=== PATIENT | female | born 1965 | race Caucasian/White ===

== ENCOUNTER → 2016-05-30 | Outpatient (CLI) | payer BC ==
[2005-09-02 07:31] VITALS: TEMP 98
== END ==
LOC: MC.RAD 11:20
DX: Z12.31 Encounter for screening mammogram for malignant neoplasm of breast (principal)

== ENCOUNTER → 2017-06-30 | Outpatient (CLI) | payer BC ==
[2005-09-02 07:31] VITALS: TEMP 98
== END ==
LOC: MC.RAD 11:20
DX: Z12.31 Encounter for screening mammogram for malignant neoplasm of breast (principal)

== ENCOUNTER → 2018-05-23 | Outpatient (CLI) | payer BC ==
[2005-09-02 07:31] VITALS: TEMP 98
== END ==
LOC: COL.RAD 08:01
DX: G51.0 Bell's palsy (principal)
CPT/HCPCS: A9585

== ENCOUNTER → 2018-09-13 | Outpatient (CLI) | payer BC ==
[2005-09-02 07:31] VITALS: TEMP 98
== END ==
LOC: MC.RAD 15:25
DX: Z12.31 Encounter for screening mammogram for malignant neoplasm of breast (principal)

== ENCOUNTER → 2019-06-24 | Outpatient (CLI) | payer BC ==
[2005-09-02 07:31] VITALS: TEMP 98
== END ==
LOC: COL.RAD 09:18
DX: R90.89 Other abnormal findings on diagnostic imaging of central nervous system (principal)
CPT/HCPCS: A9585

== ENCOUNTER → 2020-02-07 | Outpatient (CLI) | payer BC ==
[2005-09-02 07:31] VITALS: TEMP 98
[~2020-02-07] MED LIST: DOXYCYCLINE HY100 MG PO; GLUCOTROL 5M5 MG/TAB PO; INVANZ INJ1 G/VIAL IV; PRINZIDE 12.5 M1 TA1 PO; XIGDUO5/1000 PO; ZOCOR 40MG40 MG PO; ZYRTEC 10MG10 MG PO
== END ==
LOC: ZCOL.LAB 16:36
DX: S61.451A Open bite of right hand, initial encounter (principal)

== ENCOUNTER → 2020-02-13 | Outpatient (CLI) | payer BC ==
[2005-09-02 07:31] VITALS: TEMP 98
== END ==
LOC: ZCOL.LAB 16:27
DX: L08.9 Local infection of the skin and subcutaneous tissue, unspecified (principal); W55.01XA Bitten by cat, initial encounter

== ENCOUNTER 2020-02-27 07:30 | Outpatient (RCR) | payer BC ==
[2020-02-06 12:42] VITALS: BP 117/61; PULSE 57; TEMP 97.8
[2020-02-07 07:40] VITALS: BP 117/76; PULSE 55; TEMP 97.8
--- NOTE | 2020-02-08 08:30 | NUR ---
picc dressing change today due to dried drainage under tegrederm, covering Guard/statlock. Site with slight bruised area but no redness or active drainage/bleeding
[2020-02-08 09:20] VITALS: BP 112/74; PULSE 60; TEMP 98
[2020-02-09 07:48] VITALS: BP 110/73; PULSE 55; TEMP 98.3
[2020-02-10 07:45] VITALS: BP 122/77; PULSE 66; TEMP 98.1
[2020-02-10 07:56] LABS: BASO # 0.1 (0.0-0.2); BASO % 1.6 % (0.0-2.0); EOS # 0.3 (0.0-0.7); EOS % 5.2 % (0-4.0); GRAN # 3.4 (1.4-6.5); GRAN % 54.5 % (42.2-75.2); HEMATOCRIT 44.7 % (37.0-47.0); LYMPH # 1.9 (1.2-3.4); LYMPH % 30.7 % (20.0-51.0); MEAN CELL VOLUME 86 fl (80.0-100.0); MEAN CORPUSCULAR HEMOGLOBIN 29 pg (27.0-31.0); MEAN CORPUSCULAR HGB CONC 34 g/dl (33.0-37.0); MEAN PLATELET VOLUME 8.8 fl (7.4-10.4); MONO # 0.5 (0.1-0.6); MONO % 7.8 % (1.7-9.3); PLATELET COUNT 246 K/mm3 (130-400); RED BLOOD COUNT 5.19 M/mm3 (4.10-5.30); REDCELL DISTRIBUTION WIDTH-CV 13.2 % (11.5-14.5)
[2020-02-10 08:07] LABS: ALBUMIN 4.6 gm/dL (3.5-5.0); BILIRUBIN,TOTAL 1.4 mg/dL (0.0-1.0); C-REACTIVE PROTEIN 1.1 mg/dL (0.0-0.9); CALCIUM 9.6 mg/dL (8.4-10.2); CREATININE, serum 0.67 (0.52-1.25); POTASSIUM 3.9 mmol/L (3.4-5.0); TOTAL PROTEIN 7.9 gm/dL (6.4-8.2)
[2020-02-10 08:29] LABS: ERYTHROCYTE SEDIMENTATION RATE 20 mm/hr (0-30)
[2020-02-11 07:39] VITALS: BP 114/74; PULSE 64; TEMP 97.7
[2020-02-12 07:59] VITALS: BP 108/71; PULSE 61; TEMP 98.4
[2020-02-13 07:38] VITALS: BP 105/70; PULSE 55; TEMP 98
--- NOTE | 2020-02-13 07:45 | NUR ---
PICC intact left upper arm with sterile dressing change with insertion site cleansed with chloraprep x 1, chlorhexidine impregnated disk applied, skin prep, stat lock, and tegderm applied. no signs or symptoms of IV complications noted. re-wrapped with christiana to protect catheter.
[2020-02-14 07:41] VITALS: BP 112/76; PULSE 65; TEMP 97.9
[2020-02-15 07:52] VITALS: BP 115/75; PULSE 63; TEMP 98.1
[2020-02-16 08:11] VITALS: BP 112/69; PULSE 65; TEMP 98.5
[2020-02-17 07:45] VITALS: BP 110/71; PULSE 63; TEMP 98.3
[2020-02-17 07:57] LABS: BASO # 0.1 (0.0-0.2); BASO % 2.2 % (0.0-2.0); EOS # 0.4 (0.0-0.7); EOS % 5.8 % (0-4.0); GRAN # 3.1 (1.4-6.5); GRAN % 51.5 % (42.2-75.2); HEMATOCRIT 45.2 % (37.0-47.0); HEMOGLOBIN 15.1 g/dl (12.5-16.0); MEAN CELL VOLUME 86 fl (80.0-100.0); MEAN CORPUSCULAR HEMOGLOBIN 29 pg (27.0-31.0); MEAN CORPUSCULAR HGB CONC 33 g/dl (33.0-37.0); MEAN PLATELET VOLUME 8.8 fl (7.4-10.4); MONO # 0.4 (0.1-0.6); MONO % 7.3 % (1.7-9.3); PLATELET COUNT 255 K/mm3 (130-400); RED BLOOD COUNT 5.24 M/mm3 (4.10-5.30); REDCELL DISTRIBUTION WIDTH-CV 12.8 % (11.5-14.5)
[2020-02-17 08:09] LABS: ALBUMIN 4.6 gm/dL (3.5-5.0); BILIRUBIN,TOTAL 1.3 mg/dL (0.0-1.0); C-REACTIVE PROTEIN 0.9 mg/dL (0.0-0.9); CALCIUM 9.3 mg/dL (8.4-10.2); CREATININE, serum 0.76 (0.52-1.25); POTASSIUM 4.3 mmol/L (3.4-5.0); TOTAL PROTEIN 7.9 gm/dL (6.4-8.2)
[2020-02-17 08:32] LABS: ERYTHROCYTE SEDIMENTATION RATE 13 mm/hr (0-30)
[2020-02-18 07:36] VITALS: BP 105/70; PULSE 67; TEMP 98.5
[2020-02-19 07:45] VITALS: BP 116/68; PULSE 60; TEMP 98.1
--- NOTE | 2020-02-20 08:00 | NUR ---
PICC intact left upper arm with sterile dressing change done with insertion site cleansed with chloraprep x 1, chlorhexidine impregnated disk applied, ski prep, stat lock, and tegaderm applied. no signs or symptoms of of IV complications noted. no concerns voiced. Has a doctor appointment later today. Continue with cares in [place] as scheduled. voiced understanding of instructions.
[2020-02-20 08:51] VITALS: BP 106/71; PULSE 63; TEMP 98
[2020-02-21 07:45] VITALS: BP 114/77; PULSE 61; TEMP 97.8
[2020-02-22 08:06] VITALS: BP 117/76; PULSE 68; TEMP 98.1
[2020-02-23 08:11] VITALS: BP 104/72; PULSE 67; TEMP 98.1
[2020-02-24 08:25] VITALS: BP 102/82; PULSE 63; TEMP 98.2
[2020-02-24 08:34] LABS: BASO # 0.1 (0.0-0.2); BASO % 2.2 % (0.0-2.0); EOS # 0.4 (0.0-0.7); EOS % 7.4 % (0-4.0); GRAN # 2.5 (1.4-6.5); GRAN % 50.5 % (42.2-75.2); HEMATOCRIT 41.1 % (37.0-47.0); HEMOGLOBIN 13.8 g/dl (12.5-16.0); LYMPH # 1.5 (1.2-3.4); LYMPH % 30.3 % (20.0-51.0); MEAN CELL VOLUME 86 fl (80.0-100.0); MEAN CORPUSCULAR HEMOGLOBIN 29 pg (27.0-31.0); MEAN CORPUSCULAR HGB CONC 34 g/dl (33.0-37.0); MEAN PLATELET VOLUME 8.7 fl (7.4-10.4); MONO # 0.5 (0.1-0.6); MONO % 9.4 % (1.7-9.3); PLATELET COUNT 231 K/mm3 (130-400); REDCELL DISTRIBUTION WIDTH-CV 12.7 % (11.5-14.5)
[2020-02-24 08:58] LABS: ALBUMIN 4.3 gm/dL (3.5-5.0); BILIRUBIN,TOTAL 1.3 mg/dL (0.0-1.0); C-REACTIVE PROTEIN 0.6 mg/dL (0.0-0.9); CALCIUM 8.9 mg/dL (8.4-10.2); CREATININE, serum 0.84 (0.52-1.25); TOTAL PROTEIN 7.3 gm/dL (6.4-8.2)
[2020-02-24 09:11] LABS: ERYTHROCYTE SEDIMENTATION RATE 13 mm/hr (0-30)
[2020-02-25 07:41] VITALS: BP 112/71; PULSE 63; TEMP 98.3
[2020-02-26 08:02] VITALS: BP 106/71; PULSE 64; TEMP 97.9
[~2020-02-27] VITALS: Ht 170.2 cm; Wt 100.1 kg
[2020-02-27 07:45] VITALS: BP 105/70; PULSE 58; TEMP 97.6
[2020-02-27 11:26] VITALS: BP 116/72; PULSE 54; TEMP 97.6
== END 2020-02-27 12:10 | disposition still patient (30) ==
LOC: EUO 07:30
PROVIDERS: Internal Medicine Infectious Disease; Nurse Practitioner
DX: Z45.2 Encounter for adjustment and management of vascular access device (principal); S61.451A Open bite of right hand, initial encounter; E11.40 Type 2 diabetes mellitus with diabetic neuropathy, unspecified; M01.X0 Direct infection of unspecified joint in infectious and parasitic diseases classified elsewhere; L08.9 Local infection of the skin and subcutaneous tissue, unspecified; G62.9 Polyneuropathy, unspecified
CPT/HCPCS: C1751; J1335

== ENCOUNTER 2020-05-21 11:00 | Outpatient (RCR) | payer BC ==
[2005-09-02 07:31] VITALS: TEMP 98
== END 2020-05-22 15:30 | disposition home or self-care (01) ==
LOC: WSOT
DX: M79.641 Pain in right hand (principal)

== ENCOUNTER → 2020-06-15 | Outpatient (CLI) | payer BC ==
[2005-09-02 07:31] VITALS: TEMP 98
== END ==
LOC: COL.RAD 07:33
DX: K44.9 Diaphragmatic hernia without obstruction or gangrene (principal); Z90.49 Acquired absence of other specified parts of digestive tract; Z90.710 Acquired absence of both cervix and uterus
CPT/HCPCS: Q9967

== ENCOUNTER → 2020-07-31 | Outpatient (CLI) | payer BC ==
[2005-09-02 07:31] VITALS: TEMP 98
== END ==
LOC: COL.RAD 08:53
DX: D47.2 Monoclonal gammopathy (principal)